=== PATIENT | male | born 1970 | race Caucasian/White ===

== ENCOUNTER 2022-06-04 18:05 | Inpatient (IN) | payer BC, OTHER ==
[~2022-06-04] VITALS: Ht 172.7 cm; Wt 99.9 kg
[2022-06-04] MEDS ORDERED: IV NORMAL SALINE 1000 ML BAG IV ONE (18:45)
[2022-06-04 18:52] LABS: HEMATOCRIT 42.4 % (36.7-47.1); MEAN CORPUSCULAR HEMOGLOBIN 29.8 uug (23.8-33.4); MEAN CORPUSCULAR VOLUME 89.6 fL (73.0-96.2); PLATELET COUNT (AUTO) 262 K/uL (152-348)
[2022-06-04 18:57] LABS: CARBON DIOXIDE 28 mmol/L (21-32); CHLORIDE 107 mmol/L (98-107); CREATININE 1.8 mg/dL (0.6-1.3); GLUCOSE 106 mg/dL (74-106); POTASSIUM 3.9 mmol/L (3.5-5.1); UREA NITROGEN, BLOOD 18 mg/dL (7-18)
--- NOTE | 2022-06-04 19:00 | NUR ---
change of shift report received from Jina LUX
[2022-06-04 19:05] LABS: ALANINE AMINOTRANSFERASE 40 U/L (16-63); ALKALINE PHOSPHATASE 55 U/L (50-136); ASPARTATE AMINOTRANSFERASE 21 U/L (15-37); BILIRUBIN,DIRECT 0.1 mg/dL (0.0-0.2); BILIRUBIN,TOTAL 0.6 mg/dL (0.2-1.0)
--- NOTE | 2022-06-04 19:05 | NUR ---
Patient is a/ox4, NAD noted.
[2022-06-04] MEDS ORDERED: NITROGLYCERIN OINT 1 GM PACKET TP ONE ×2 (19:15→19:21)
[2022-06-04] MEDS ORDERED: ASPIRIN 81 MG TAB.CHEW PO ONE (19:15)
[2022-06-04] MEDS ORDERED: METOPROLOL TARTRATE 5 MG/5 ML VIAL IVP ONE ×2 (19:15→19:21)
[2022-06-04] MEDS ORDERED: ASPIRIN 81 MG TAB.CHEW ONE (19:20)
--- NOTE | 2022-06-04 19:27 | NUR ---
Paged Epic calibration tester, waiting for DR Snyder to call back.
--- NOTE | 2022-06-04 19:30 | NUR ---
Patient's at bedside
--- NOTE | 2022-06-04 19:50 | NUR ---
called 3rd floor for TELE bed. Will call me back
--- NOTE | 2022-06-04 20:02 | NUR ---
Colt LUXform setter supervisor called. Patient will go to room [address] Kinney
--- NOTE | 2022-06-04 20:37 | NUR ---
report given to Denise LUX. Patient will be admitted to TELE room 317
--- NOTE | 2022-06-04 20:55 | NUR ---
Received pt from er via cele. Family at bedside. Under the care of Dr. Hameed. Dx: ACS. Belonging list done. Admission process and care plan initiated. Skilled nusing assessment done. Safety and comfort provided. Will continue to monitor.
--- NOTE | 2022-06-04 21:02 | NUR ---
Pt. admitted to TELE room 317 , under care of Dr. Kinney Belongs List completed. Denise RN aware of patient's arrival
--- NOTE | 2022-06-04 21:30 | NUR ---
Dr. Hameed seen the pt .
[2022-06-04] MEDS ORDERED: HYDROCODONE/APAP 5-325MG TABLET PO PRN (22:00)
[2022-06-04] MEDS ORDERED: NITROGLYCERIN 0.4 MG/TAB BOTTLE SL PRN (22:00)
[2022-06-04] MEDS ORDERED: ACETAMINOPHEN 325 MG TABLET PO PRN (22:00)
[2022-06-04] MEDS ORDERED: ZOLPIDEM 5 MG TABLET PO PRN (22:00)
[2022-06-04] MEDS ORDERED: ENOXAPARIN SODIUM 80 MG/0.8 ML DISP.SYRIN SQ SCH (22:00)
[2022-06-04] MEDS ORDERED: ONDANSETRON 4 MG/2 ML VIAL IV PRN (22:00)
--- NOTE | 2022-06-04 22:01 | NUR ---
Notify Dr. Kinney regrading critical lab of [id number]. Pt in no acute distress.Dr cherise and the orders was put on the chart.
[2022-06-04 22:44] VITALS: BP 99/54
[2022-06-04] MEDS ORDERED: ENOXAPARIN SODIUM 100 MG/ML DISP.SYRIN SQ SCH ×3 (22:45)
[2022-06-04] MEDS: ATORVASTATIN 40 MG TABLET PO SCH (22:48)
[2022-06-04] MEDS ORDERED: ENOXAPARIN SODIUM 100 MG/ML DISP.SYRIN SQ ONE (22:56)
[2022-06-04] MEDS: ENOXAPARIN SODIUM 100 MG/ML DISP.SYRIN SQ SCH (23:09)
--- NOTE | 2022-06-04 23:57 | NUR ---
covid [address] Hameed. Will continue to monitor.
[2022-06-05] VITALS: BP 96/60
--- NOTE | 2022-06-05 00:45 | NUR ---
Joanne from nuclear medicine brought the pt down for [facility] Perfusion . As per Joanne pt needs PCR for the NM VQ scan so while pt waiting for PCR [facility] Pul[facility] Perfusion will be done since isotope is already available.
--- NOTE | 2022-06-05 01:45 | NUR ---
Pt backed from Nuclear medicine. Adam fisher.
[2022-06-05 01:58] LABS: *AMPHETAMINE, URINE NEGATIVE (NEGATIVE); *CANNABINOID, URINE NEGATIVE (NEGATIVE); *COCCAINE, URINE NEGATIVE (NEGATIVE); *PHENCYCLIDINE SCREEN,URINE NEGATIVE (NEGATIVE)
[2022-06-05 04:00] VITALS: BP 98/57
[2022-06-05] MEDS: PANTOPRAZOLE SODIUM 40 MG TABLET.DR PO SCH (06:16)
--- NOTE | 2022-06-05 06:21 | NUR ---
Pt slept intermittently. Pt in no acute distress. Pt on sinus rhythm. Iv intact. Safety and comfort provided. Will endorse to incoming nurse for continuity of care.
[2022-06-05 06:45] LABS: HEMATOCRIT 35.9 % (36.7-47.1); MEAN CORPUSCULAR VOLUME 89.1 fL (73.0-96.2); PLATELET COUNT (AUTO) 224 K/uL (152-348)
[2022-06-05 07:12] LABS: BILIRUBIN,TOTAL 0.7 mg/dL (0.2-1.0); CREATININE 1.3 mg/dL (0.6-1.3); MAGNESIUM 1.8 mg/dL (1.8-2.4); PHOSPHOROUS 3.3 mg/dL (2.5-4.9); TOTAL PROTEIN, SERUM 5.9 g/dL (6.4-8.2)
[2022-06-05 07:15] LABS: THYROID STIMULATING HORMONE 1.161 mIU/mL (0.358-3.740)
[2022-06-05] MEDS: ASPIRIN EC 81 MG TABLET.DR PO SCH (08:39)
[2022-06-05] MEDS: ENOXAPARIN SODIUM 100 MG/ML DISP.SYRIN SQ SCH ×2 (08:40→20:38)
[2022-06-05] MEDS: METOPROLOL TARTRATE 25 MG TABLET PO SCH ×2 (09:00→21:00)
[2022-06-05 11:57] VITALS: BP 101/68
[2022-06-05 12:28] LABS: *BILIRUBIN,URIN NEGATIVE (NEGATIVE); *BLOOD, URINE NEGATIVE (NEGATIVE); *CLARITY,URINE CLEAR (CLEAR); *COLOR,URINE YELLOW (YELLOW); *KETONES,URINE NEGATIVE (NEGATIVE); *UROBILINOGEN,URINE 0.2 E.U./dl (NORMAL); LEUKOCYTE ESTERASE ,URINE NEGATIVE (NEGATIVE); NITRITE, URINE NEGATIVE (NEGATIVE); UGLUCOSE NEGATIVE (NEGATIVE)
--- NOTE | 2022-06-05 12:50 | NUR ---
Pt had episode of 30 secs vtach b/p 116/72-hr 79-r/a 97% resp 18 asymptomatic. EKG ordered notified dr harrell and sent pix of ekg strip and ekg monitor strips. Cancelled CTA and plan for cardiac cath Tomorrow per dr finch. [address] [facility] here for echocardiogram.
[2022-06-05 13:23] LABS: *CREATININE,URINE 31.2 mg/dL (30-125)
[2022-06-05 13:25] LABS: *URINE TOTAL PROTEIN RANDOM < 6.0 mg/dL (<150/24HR)
[2022-06-05] MEDS ORDERED: AMIODARONE HCL IV 150 MG in IV DEXTROSE 5% 100 ML IV ONE (14:00)
[2022-06-05] MEDS: AMIODARONE HCL IV 450 MG in IV DEXTROSE 5% 250 ML IV PRN (15:21)
[2022-06-05 16:15] VITALS: BP 109/69
--- NOTE | 2022-06-05 18:30 | NUR ---
PT tolerating amiodorone drip as ordered. Report given to on coming shift. Pt is in no acute distress. Call light is within reach.
--- NOTE | 2022-06-05 19:30 | NUR ---
Received pt in no acute distress. Iv intact. Safety and comfort provided. Will continue to monitor.
[2022-06-05] MEDS: IV NS 1000 ML 1,000 ML IV PRN (19:37)
[2022-06-05 20:00] VITALS: BP 102/66
[2022-06-05] MEDS: ATORVASTATIN 40 MG TABLET PO SCH (20:29)
--- NOTE | 2022-06-05 21:25 | NUR ---
Received report from Denise LUX, patient alert oriented, no sob no chest pain, sinus rhythm in tele report, no episode of v tach noted, family at bedside. v/s stable cont to monitor
--- NOTE | 2022-06-05 21:56 | NUR ---
Hands off report to Antonino LUX. Pt stable.
[2022-06-06] VITALS: BP 114/75
[2022-06-06] MEDS: IV NS 1000 ML 1,000 ML IV PRN
[2022-06-06] MEDS: AMIODARONE HCL IV 450 MG in IV DEXTROSE 5% 250 ML IV PRN (01:37)
[2022-06-06 04:00] VITALS: BP 104/71
[2022-06-06] MEDS: PANTOPRAZOLE SODIUM 40 MG TABLET.DR PO SCH (06:08)
[2022-06-06 06:51] LABS: HEMATOCRIT 36.8 % (36.7-47.1); MEAN CORPUSCULAR HEMOGLOBIN 29.9 uug (23.8-33.4); MEAN CORPUSCULAR VOLUME 88.4 fL (73.0-96.2); PLATELET COUNT (AUTO) 233 K/uL (152-348)
[2022-06-06 07:16] LABS: BILIRUBIN,TOTAL 0.7 mg/dL (0.2-1.0); CREATININE 1.2 mg/dL (0.6-1.3); MAGNESIUM 1.8 mg/dL (1.8-2.4); PHOSPHOROUS 3.2 mg/dL (2.5-4.9); POTASSIUM 3.9 mmol/L (3.5-5.1); TOTAL PROTEIN, SERUM 6.2 g/dL (6.4-8.2)
[2022-06-06 08:00] VITALS: BP 108/76
[2022-06-06 08:10] VITALS: BP 100/86
[2022-06-06] MEDS: METOPROLOL TARTRATE 25 MG TABLET PO SCH (08:10)
[2022-06-06] MEDS: ASPIRIN EC 81 MG TABLET.DR PO SCH (08:10)
--- NOTE | 2022-06-06 10:42 | NUR ---
Patient to have Cardiac CTA at [place] [address].
--- NOTE | 2022-06-06 11:32 | NUR ---
Patient to be transferred to [place]. Report given to Lucy LUX of 3rd floor. Call back number provided.
--- NOTE | 2022-06-06 13:38 | NUR ---
Patient being transferred to [facility]. Report given to EMT's. IV site patent and intact. ID wrist band removed. Discharge education provided to patient and at bedside.
[2022-06-07 06:06] LABS: A/G RATIO 1.1 (0.7-1.7); ALPHA-1-GLOBULIN 0.2 g/dL (0.0-0.4); ALPHA-2-GLOBULIN 0.7 g/dL (0.4-1.0); BETA GLOBULIN 0.9 g/dL (0.7-1.3); GAMMA GLOBULIN 0.9 g/dL (0.4-1.8); GLOBULIN, TOTAL 2.7 g/dL (2.2-3.9); M-SPIKE Not Observed g/dL (Not Observed)
== END 2022-06-06 14:00 | disposition short-term general hospital (02) | DRG 280 ==
LOC: ER 18:13 → TELE3 20:33 → TELE-TD3 06-05 14:32
PROVIDERS: ADMIT Internal Medicine
DX: I47.2 Ventricular tachycardia (principal); I21.4 Non-ST elevation (NSTEMI) myocardial infarction; N17.0 Acute kidney failure with tubular necrosis; D64.9 Anemia, unspecified; E66.9 Obesity, unspecified; E83.51 Hypocalcemia; R55 Syncope and collapse; Z87.442 Personal history of urinary calculi; Z68.33 Body mass index [BMI] 33.0-33.9, adult; Z20.822 Contact with and (suspected) exposure to COVID-19; N18.9 Chronic kidney disease, unspecified; E86.0 Dehydration; I95.9 Hypotension, unspecified; R91.8 Other nonspecific abnormal finding of lung field
CPT/HCPCS: 36415; 71045; 76770; 78580; 83735; 83970; 84100; 84155; 84156; 84165; 84300; 84443; 84484; 85025; 93005; 93307; A4663; A9540; G0378; J0282; J1650; J3490; J7040; J7050; U0003